=== PATIENT | male | born 1980 | race Asian ===

== ENCOUNTER 2019-03-18 13:52 | Inpatient (IN) | payer OTHER ==
[~2019-03-18] VITALS: Ht 170.2 cm; Wt 78.4 kg
--- NOTE | 2019-03-18 14:09 | ERD ---
ER Documentation Chief Complaint Chief Complaint right lower abdominal pain x 3 days HPI The patient is a 39-year-old male, presenting to the ER because of intermittent abdominal pain for the last 3 to 4 days, began at the umbilical area, now radiating down to right lower quadrant for the last 2 days, complains of nausea but no vomiting, complains of loose stool yesterday. He denies similar symptoms previously, denies fever, chills, neck pain, chest pain, dysuria. He does not smoke nor drink Medical history: None Past surgical history: Cervical lipoma ROS All systems reviewed and are negative except as per history of present illness. Allergies Allergies: Coded Allergies: No Known Allergy (Unverified , 03/18/19) Physical Exam Vitals Vital Signs Date Temp Pulse Resp B/P (MAP) Pulse Ox O2 O2 Flow FiO2 Time Delivery Rate 03/18/19 98.0 63 18 135/84 98 13:55 (101) Physical Exam Const: No acute distress. Head: Atraumatic. Eyes: Normal Conjunctiva. ENT: Normal External Ears, Nose and Mouth. Neck: Full range of motion. No meningismus. Resp: Clear to auscultation bilaterally. Cardio: Regular rate and rhythm. Abd: Soft, non distended, normal bowel sounds, mild right lower quadrant tenderness, no rigidity/rebound/CVA tenderness Skin: No petechiae or rashes. Back: No midline or flank tenderness. Ext: No cyanosis, or edema. Neur: Awake and alert. No focal deficit Psych: Normal Mood and Affect. Result Diagram: 03/19/19 0447 03/19/197 Results 24 hrs Laboratory Tests Test 03/18/19 14:21 03/18/19 14:22 03/18/19 14:37 Hemoglobin A1c 5.9 % White Blood Count 6.9 10^3/ul Red Blood Count 5.58 10^6/ul Hemoglobin 16.1 g/dl Hematocrit 49.4 % Mean Corpuscular Volume 88.5 fl Mean Corpuscular Hemoglobin 28.9 pg Mean Corpuscular 32.6 g/dl Hemoglobin Concent Red Cell Distribution Width 12.3 % Platelet Count 245 10^3/UL Mean Platelet Volume 10.6 fl Immature Granulocytes % 0.400 % Neutrophils % 57.0 % Lymphocytes % 31.4 % Monocytes % 6.7 % Eosinophils % 3.2 % Basophils % 1.3 % Nucleated Red Blood Cells % 0.0 /100WBC Immature Granulocytes # 0.030 10^3/ul Neutrophils # 3.9 10^3/ul Lymphocytes # 2.2 10^3/ul Monocytes # 0.5 10^3/ul Eosinophils # 0.2 10^3/ul Basophils # 0.1 10^3/ul Nucleated Red Blood Cells # 0.0 10^3/ul Sodium Level 141 mmol/L Potassium Level 3.7 mmol/L Chloride Level 105 mmol/L Carbon Dioxide Level 26 mmol/L Anion Gap 10 Blood Urea Nitrogen 12 mg/dl Creatinine 0.92 mg/dl Est Glomerular Filtrat Rate mL/min > 60 mL/min Glucose Level 131 mg/dl Calcium Level 9.3 mg/dl Total Bilirubin 0.7 mg/dl Direct Bilirubin 0.00 mg/dl Indirect Bilirubin 0.7 mg/dl Aspartate Amino Transf (AST/SGOT) 34 IU/L Alanine 43 IU/L Aminotransferase (ALT/SGPT) Alkaline Phosphatase 69 IU/L Total Protein 7.8 g/dl Albumin 4.5 g/dl Globulin 3.30 g/dl Albumin/Globulin Ratio 1.36 Lipase 128 U/L Bedside Urine pH (LAB) 6.0 Bedside Urine Protein (LAB) Negative Bedside Urine Glucose (UA) Negative Bedside Urine Ketones (LAB) Negative Bedside Urine Blood Negative Bedside Urine Nitrite (LAB) Negative Bedside Urine Leukocyte Esterase Negative (L Current Medications Medications Dose Sig/Nic Start Time Status Last (Trade) Ordered Route PRN Stop Time Admin Dose Reason Admin Ketorolac 30 mg ONCE STAT 03/18/19 DC 03/18/19 Tromethamine IV 14:15 14:26 (Toradol) 03/18/19 14:16 Piperacillin 100 ml @ ONCE ONCE 03/18/19 DC 03/18/19 Sod/ 200 mls/hr IVPB 16:30 16:24 Tazobactam 03/18/19 16:59 Sod Sodium 1,000 ml @ Q1H ONCE 03/18/19 DC 03/18/19 Chloride 1,000 mls/hr IV 16:30 16:24 03/18/19 17:29 Ondansetron 4 mg ONCE STAT 03/18/19 DC 03/18/19 HCl (Zofran IV 16:09 16:24 Inj) 03/18/19 16:11 Procedures/[facility] [address] [address] Radiology Main Line: [phone] DIAGNOSTIC IMAGING REPORT Patient: MAGEN JAIMES : 1980 Age: 39 Sex: M MR #: [id number] DOS: 03/18/19 1415 Ordering MD: DIOMEDES POLLARD MD Location: FTE Room/Bed: PROCEDURE: CT Abdomen and Pelvis without contrast. CLINICAL INDICATION: Abdominal pain TECHNIQUE: CT of the abdomen and pelvis without IV contrast. Coronal and sagittal reformatted images. DICOM images are available. One or more of the following dose reduction techniques were used: automated exposure control, adjustment of the mA and/or kV according to patient size, use of iterative reconstruction technique. CTDI 10.6 mGy, DLP 629 mGy-cm. COMPARISON: None. FINDINGS: Lower thorax: Normal Liver: Mild steatosis. Biliary: Normal gallbladder. No biliary dilatation. Pancreas: Normal Spleen: Normal Adrenal glands: Normal Genitourinary: No hydronephrosis or urinary calculi. Unremarkable urinary bladder. Vascular: No abdominal aortic aneurysm. Lymph nodes: No lymphadenopathy. Gastrointestinal: The appendix is distended (14 mm diameter), with mild adjacent inflammation, consistent with appendicitis. The appendix is retrocecal. No bowel obstruction. No diverticulosis, diverticulitis or colitis. Peritoneum: No free air, free fluid or abscess. Reproductive organs: Unremarkable. Musculoskeletal: Unremarkable. IMPRESSION: 1. The study is positive for retrocecal appendicitis, as above. 2. Mild hepatic steatosis. The above findings were discussed with Dr. Corrigan on 03/18/2019 3:52:26 PM. RPTAT: DD .Brian Zafar MD, MD Date Time Electronically viewed and signed by .Brian Zafar MD, MD on 03/18/2019 15: 53 .R/ CC: DIOMEDES POLLARD MD [id number] MEDICAL MAKING DECISION: The patient is a 39-year-old male, presenting with acute appendicitis, treated with Zosyn IV for acute appendicitis, 1 L normal saline, morphine 2 mg IV for pain and Zofran 4mg IV for nausea with good response. The differential diagnoses considered include but are not limited to cholelithiasis, cholecystitis, choledocholithiasis, cholangitis, pancreatitis, hepatitis, gastritis, peptic ulcer disease, gastric ulcer, appendicitis, cystitis, diverticulitis, partial small bowel obstruction. Consultation: I discussed the patient with the on-call surgeon Dr. Kapoor at 4:10 PM, who evaluated the patient in the ER Departure Diagnosis: Primary Impression: Appendicitis Condition: Stable Comments I discussed the findings with the patient. I notified the patient with Dr. Latham ate 4:40P via [employer] , who was made aware of the lab, the treatment, the patient condition. The patient is admitted to ms Disclaimer: Inadvertent spelling and grammatical errors are likely due to EHR/dictation software use and do not reflect on the overall quality of patient care. Also, please note that the electronic time recorded on this note does not necessarily reflect the actual time of the patient encounter. DIOMEDES POLLARD MD Mar 18, 2019 14:09
[2019-03-18] MEDS ORDERED: KETOROLAC 30 MG INJ IV STA (14:15)
[2019-03-18] MEDS ORDERED: ONDANSETRON 4 MG INJ IV STA (16:09)
[2019-03-18] MEDS ORDERED: PIPER-TAZO 3.375 GM IV (PMX) 100 ML IVPB ONE (16:30)
[2019-03-18] MEDS ORDERED: SOD CHLORIDE 0.9% 1,000 ML IV ONE (16:30)
--- NOTE | 2019-03-18 17:11 | HP ---
Date/Time of Note Date/Time of Note DATE: 03/18/19 TIME: 17:10 Assessment/Plan VTE Prophylaxis Pharmacological prophylaxis: NA/contraindicated Pharm contraindication: surgical contra Lines/Catheters IV [facility] Peripheral IV Assessment/Plan Hospital Course 39-year-old male with no significant past medical history, who came in with abdominal pain with CT evidence of acute appendicitis, [facility] and [facility]. 1. Abdominal pain. CT evidence of acute appendicitis. Keep the patient n.p.o. Will start the patient on antibiotics including coverage for anaerobes. Continue IV fluids. General surgery consult has been obtained. 2. Hepatic steatosis (incidental finding). Obtain fasting lipid panel. Plan: The patient will be admitted to inpatient medical surgical floor. The patient will be kept n.p.o. except for medications. The patient will be started on DVT prophylaxis . The patient will remain a full code. Activities will be as tolerated. The rest of the patient's management will be based on the clinical course, inputs from consultants, and the results of diagnostic studies. Based on the patient's clinical presentation, he most probably requires at least 1 midnight's stay for further management and evaluation of his clinical presentation. The patient was seen in collaboration with Dr. Latham. Result Diagram: 03/18/19 1422 03/18/19 1422 Results 24hrs Laboratory Tests Test 03/18/19 14:22 03/18/19 14:37 White Blood Count 6.9 Red Blood Count 5.58 Hemoglobin 16.1 Hematocrit 49.4 Mean Corpuscular Volume 88.5 Mean Corpuscular Hemoglobin 28.9 L Mean Corpuscular Hemoglobin Concent 32.6 Red Cell Distribution Width 12.3 Platelet Count 245 Mean Platelet Volume 10.6 H Immature Granulocytes % 0.400 Neutrophils % 57.0 Lymphocytes % 31.4 Monocytes % 6.7 Eosinophils % 3.2 Basophils % 1.3 Nucleated Red Blood Cells % 0.0 Immature Granulocytes # 0.030 Neutrophils # 3.9 Lymphocytes # 2.2 Monocytes # 0.5 Eosinophils # 0.2 Basophils # 0.1 Nucleated Red Blood Cells # 0.0 Sodium Level 141 Potassium Level 3.7 Chloride Level 105 Carbon Dioxide Level 26 Anion Gap 10 Blood Urea Nitrogen 12 Creatinine 0.92 Est Glomerular Filtrat Rate mL/min > 60 Glucose Level 131 Calcium Level 9.3 Total Bilirubin 0.7 Direct Bilirubin 0.00 Indirect Bilirubin 0.7 Aspartate Amino Transf (AST/SGOT) 34 Alanine Aminotransferase (ALT/SGPT) 43 Alkaline Phosphatase 69 Total Protein 7.8 Albumin 4.5 Globulin 3.30 H Albumin/Globulin Ratio 1.36 Lipase 128 Bedside Urine pH (LAB) 6.0 Bedside Urine Protein (LAB) Negative Bedside Urine Glucose (UA) Negative Bedside Urine Ketones (LAB) Negative Bedside Urine Blood Negative Bedside Urine Nitrite (LAB) Negative Bedside Urine Leukocyte Esterase (L Negative HPI/ROS Admit Date/Time Admit Date/Time Hx of Present Illness Reason for admission: Abdominal pain. CT evidence of acute appendicitis. Consultants 1. Damon Kapoor MD, General surgery. This is a 39-year-old male who denied any significant past medical history. The patient has been having abdominal pain for the past few days. He was also having underlying nausea. He had a few episodes of diarrhea lately. He also was feeling a lot of flatus. He denied any fevers or chills. He went to the primary care physician and he was referred to the emergency room. In the emergency room, the patient underwent a CT scan of the abdomen and pelvis that was showing evidence of retrocecal appendicitis. He was afebrile and had no leukocytosis. The patient was treated with IV analgesics, IV fluids, and Zosyn. General surgery consult was called by the ER physician. ROS Constitutional: poor po Eyes: no complaints ENT: no complaints Respiratory: no complaints Cardiovascular: no complaints Gastrointestinal: pain, decreased appetite, diarrhea, flatus, nausea Genitourinary: no complaints Musculoskeletal: no complaints Skin: no complaints Neurologic: no complaints Endocrine: no complaints Lymphatic: no complaints Psychological: no complaints Immunologic: no complaints PMH/Family/Social Past Medical History Medical History: no pertinent history Medications Current Medications Sodium Chloride 1,000 ml @ 1,000 mls/hr Q1H ONCE IV Last administered on 03/18/19at 16:24; Admin Dose 1,000 MLS/HR; Start 03/18/19 at 16:30; Stop 03/18/19 at 17:29 Coded Allergies: No Known Allergy (Unverified , 03/18/19) Past Surgical History Liposuction to the back of the neck. Social History Lives at home with family. 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 Alcohol Use: none Smoking Status: Never smoker Drug Use: none Exam/Review of Systems Vital Signs Vitals Vital Signs Date Temp Pulse Resp B/P (MAP) Pulse Ox O2 O2 Flow FiO2 Time Delivery Rate 03/18/19 98.0 63 18 135/84 98 13:55 (101) Exam Exam General: Adequately build 39 year-old male lying in bed in no apparent distress. HEENT: Normocephalic, atraumatic. Eyes: Anicteric sclerae, conjunctivae clear. ENT: Nasal septum midline, oral mucosa is dry. Neck supple, no JVD noticed. Respiratory: Bilaterally clear breath sounds. No use of accessory muscles of respiration. No adventitious breath sounds. Cardiovascular: S1, S2 heard. No murmurs or gallops. Abdomen: Slightly distended and nontender. Bowel sounds positive in all 4 quadrants. Genitourinary: Deferred. Extremities: No cyanosis, no clubbing, no edema. Peripheral pulses palpable. Neurologic: Cranial nerves II through XII grossly intact. The patient is awake, alert, and oriented. Skin: Normal skin turgor. No skin rashes. Additional Comments CT Abdomen and Pelvis IMPRESSION: 1. The study is positive for retrocecal appendicitis, as above. 2. Mild hepatic steatosis. JEWEL DIAS NP Mar 18, 2019 17:11
[2019-03-18] MEDS ORDERED: NACL 0.9% 3 ML SYG IV SCH (17:30)
[2019-03-18] MEDS ORDERED: HYDROCODONE/APAP (5/325) TAB PO PRN (17:30)
[2019-03-18] MEDS ORDERED: morphine 2 MG INJ IV PRN (17:30)
[2019-03-18] MEDS ORDERED: ONDANSETRON 4 MG INJ IV PRN (17:30)
[2019-03-18] MEDS ORDERED: ACETAMINOPHEN 325 MG TAB PO PRN (17:30)
[2019-03-18] MEDS ORDERED: PIPER-TAZO 3.375 GM IV (PMX) 100 ML IVPB SCH (18:00)
[2019-03-18] MEDS: SOD CHLORIDE 0.9% 1,000 ML IV SCH (19:31)
--- NOTE | 2019-03-18 20:24 | CONS ---
Assessment/Plan Assessment/Plan Hospital Course (Demo Recall) CT scan was performed that showed findings consistent with early appendicitis. White blood count was found to be normal. Assessment/Plan (Daily) 39-year-old otherwise healthy male with acute appendicitis probably very early. No evidence of severe inflammation. The patient recently had a large meal and I do not think it will be safe to proceed with surgery at this moment. Patient has very mild appendicitis, very mild signs. The decision is made to wait till tomorrow if the patient persists with pain we will proceed with appendectomy. I discussed with the patient and patient agrees. Consultation Date/Type/Reason Admit Date/Time Date of Consultation: Mar 18, 2019 Type of Consult Surgical Reason for Consultation Abdominal pain Date/Time of Note DATE: 03/18/19 TIME: 20:12 Hx of Present Illness 39-year-old otherwise healthy male started to experience diffuse abdominal pain earlier this morning. His pain was associated with nausea and vomiting. However his appetite was preserved. Subsequently pain focused in the right lower quadrant. Patient went to see his primary care physician who referred him to emergency room. Of note the patient had a large meal around 1:00 PM today. Constitutional: no complaints, improved Eyes: no complaints ENT: no complaints Respiratory: no complaints Cardiovascular: no complaints Gastrointestinal: pain, nausea, vomiting Genitourinary: no complaints Musculoskeletal: no complaints Skin: no complaints Neurologic: no complaints Endocrine: no complaints Lymphatic: no complaints Psychological: no complaints, nl mood/affect Immunologic: no complaints Past Medical History Medical History: no pertinent history Medications Current Medications Sodium Chloride 1,000 ml @ 100 mls/hr Q10H IV Last administered on 03/18/19at 19:31; Admin Dose 100 MLS/HR; Start 03/18/19 at 17:11 IV Flush (NS 3 ml) 3 ml PER PROTOCOL IV ; Start 03/18/19 at 17:30 Ondansetron HCl (Zofran Inj) 4 mg Q6H PRN IV NAUSEA/VOMITING; Start 03/18/19 at 17:30 Acetaminophen (Tylenol Tab) 650 mg Q6H PRN PO .PAIN 1-3 OR TEMP; Start 03/18/19 at 17:30 Acetaminophen/ Hydrocodone Bitart ([place] (5/325)) 1 tab Q6H PRN PO .MOD PAIN 4- 6 Last administered on 03/18/19at 19:40; Admin Dose 1 TAB; Start 03/18/19 at 17:30 Morphine Sulfate (morphine) 2 mg Q4H PRN IV .SEVERE PAIN 7-10; Start 03/18/19 at 17:30 Piperacillin Sod/ Tazobactam Sod 100 ml @ 200 mls/hr Q6 IVPB ; Start 03/19/19 at 00:00 Allergies: Coded Allergies: No Known Allergy (Unverified , 03/18/19) Past Surgical History Past Surgical Hx: no surgical history Family History Significant Family History: no pertinent family hx Social History Alcohol Use: none Smoking Status: Never smoker Drug Use: none Exam/Review of Systems Exam Vitals Vital Signs Date Temp Pulse Resp B/P (MAP) Pulse Ox O2 O2 Flow FiO2 Time Delivery Rate 03/18/19 99.1 72 18 140/87 98 Room Air 20:05 (104) Constitutional: alert, oriented, well developed Psych: no complaints, nl mood/affect Head: normocephalic, atraumatic Eyes: nl conjunctiva, EOMI, nl lids, nl sclera, PERRL ENMT: nl external ears & nose, nl lips & teeth, nl nasal mucosa & septum Neck: supple, non-tender Respiratory: clear to auscultation, normal air movement Cardiovascular: regular rate and rhythm, nl pulses Gastrointestinal: soft, nl liver, spleen, other (There is a very mild tenderness in the right lower quadrant on deep palpation, no rebound, no positive Rovsing or psoas signs.) Musculoskeletal: nl extremities to inspection, nl gait and stance Extremities: normal pulses Neurological: RN CHRONIC II-XII intact, nl mental status, nl speech, nl strength Skin: nl turgor; No rash or lesions Lymph: nl lymph nodes Results Result Diagram: 03/18/19 1422 03/18/19 1422 Results 24hrs Laboratory Tests Test 03/18/19 14:21 03/18/19 14:22 03/18/19 14:37 Hemoglobin A1c 5.9 White Blood Count 6.9 Red Blood Count 5.58 Hemoglobin 16.1 Hematocrit 49.4 Mean Corpuscular Volume 88.5 Mean Corpuscular Hemoglobin 28.9 L Mean Corpuscular Hemoglobin Concent 32.6 Red Cell Distribution Width 12.3 Platelet Count 245 Mean Platelet Volume 10.6 H Immature Granulocytes % 0.400 Neutrophils % 57.0 Lymphocytes % 31.4 Monocytes % 6.7 Eosinophils % 3.2 Basophils % 1.3 Nucleated Red Blood Cells % 0.0 Immature Granulocytes # 0.030 Neutrophils # 3.9 Lymphocytes # 2.2 Monocytes # 0.5 Eosinophils # 0.2 Basophils # 0.1 Nucleated Red Blood Cells # 0.0 Sodium Level 141 Potassium Level 3.7 Chloride Level 105 Carbon Dioxide Level 26 Anion Gap 10 Blood Urea Nitrogen 12 Creatinine 0.92 Est Glomerular Filtrat Rate mL/min > 60 Glucose Level 131 Calcium Level 9.3 Total Bilirubin 0.7 Direct Bilirubin 0.00 Indirect Bilirubin 0.7 Aspartate Amino Transf (AST/SGOT) 34 Alanine Aminotransferase (ALT/SGPT) 43 Alkaline Phosphatase 69 Total Protein 7.8 Albumin 4.5 Globulin 3.30 H Albumin/Globulin Ratio 1.36 Lipase 128 Bedside Urine pH (LAB) 6.0 Bedside Urine Protein (LAB) Negative Bedside Urine Glucose (UA) Negative Bedside Urine Ketones (LAB) Negative Bedside Urine Blood Negative Bedside Urine Nitrite (LAB) Negative Bedside Urine Leukocyte Esterase (L Negative Medications Medication Current Medications Sodium Chloride 1,000 ml @ 100 mls/hr Q10H IV Last administered on 03/18/19at 19:31; Admin Dose 100 MLS/HR; Start 03/18/19 at 17:11 IV Flush (NS 3 ml) 3 ml PER PROTOCOL IV ; Start 03/18/19 at 17:30 Ondansetron HCl (Zofran Inj) 4 mg Q6H PRN IV NAUSEA/VOMITING; Start 03/18/19 at 17:30 Acetaminophen (Tylenol Tab) 650 mg Q6H PRN PO .PAIN 1-3 OR TEMP; Start 03/18/19 at 17:30 Acetaminophen/ Hydrocodone Bitart ([place] (5/325)) 1 tab Q6H PRN PO .MOD PAIN 4- 6 Last administered on 03/18/19at 19:40; Admin Dose 1 TAB; Start 03/18/19 at 17:30 Morphine Sulfate (morphine) 2 mg Q4H PRN IV .SEVERE PAIN 7-10; Start 03/18/19 at 17:30 Piperacillin Sod/ Tazobactam Sod 100 ml @ 200 mls/hr Q6 IVPB ; Start 03/19/19 at 00:00 WIL OJEDA MD Mar 18, 2019 20:24
[2019-03-18 21:08] VITALS: BP 119/86; PULSE 71; RESP 20
[2019-03-18 21:17] VITALS: Ht 170.2 cm; Wt 78.4 kg
[2019-03-18] MEDS ORDERED: KETOROLAC 30 MG INJ ONE (22:31)
[2019-03-18] MEDS: KETOROLAC 30 MG INJ IV PRN (22:38)
[2019-03-19] VITALS (16 sets, daily range): BP systolic 92–126; BP diastolic 53–83; PULSE 62–82; RESP 13–22
[2019-03-19] MEDS: PIPER-TAZO 3.375 GM IV (PMX) 100 ML IVPB SCH ×6 (01:08→23:46)
[2019-03-19] MEDS: SOD CHLORIDE 0.9% 1,000 ML IV SCH ×2 (03:11→09:14)
[2019-03-19] MEDS: KETOROLAC 30 MG INJ IV PRN ×4 (05:15→21:01)
[2019-03-19] MEDS ORDERED: BUPIVACAINE 0.5%/EPI (SDV) 30 ML INJ ONE (11:24)
[2019-03-19] MEDS ORDERED: SEVOFLURANE 15 MIN ONE (11:30)
--- NOTE | 2019-03-19 11:45 | PREAC ---
Date/Time of Note Date/Time of Note DATE: 03/19/19 TIME: 11:44 Anesthesia Eval and Record Evaluation Time Pre-Procedure Interview DATE: 03/19/19 TIME: 11:44 Age 39 Sex male NPO: 8 hrs Preoperative diagnosis Acute Appendicitis Planned procedure Laparoscopic Appendectomy Past Medical History Past Medical History: None Surgery & Anesthesia Issues No known issue Meds Anticoagulation: No Beta Radha within 24 hr: No Reason Beta Radha not given: Pt. not on B-Radha Current Medications Sodium Chloride 1,000 ml @ 100 mls/hr Q10H IV Last administered on 03/19/19at 09:14; Admin Dose 100 MLS/HR; Start 03/18/19 at 17:11 IV Flush (NS 3 ml) 3 ml PER PROTOCOL IV ; Start 03/18/19 at 17:30 Ondansetron HCl (Zofran Inj) 4 mg Q6H PRN IV NAUSEA/VOMITING; Start 03/18/19 at 17:30 Acetaminophen (Tylenol Tab) 650 mg Q6H PRN PO .PAIN 1-3 OR TEMP; Start 03/18/19 at 17:30 Acetaminophen/ Hydrocodone Bitart ([place] (5/325)) 1 tab Q6H PRN PO .MOD PAIN 4- 6 Last administered on 03/18/19at 19:40; Admin Dose 1 TAB; Start 03/18/19 at 17:30 Morphine Sulfate (morphine) 2 mg Q4H PRN IV .SEVERE PAIN 7-10; Start 03/18/19 at 17:30 Piperacillin Sod/ Tazobactam Sod 100 ml @ 200 mls/hr Q6 IVPB Last administered on 03/19/19at 05:18; Admin Dose 200 MLS/HR; Start 03/19/19 at 00:00 Ketorolac Tromethamine (Toradol) 30 mg Q6H PRN IV PAIN LEVEL 1-3 Last administered on 03/19/19at 11:12; Admin Dose 30 MG; Start 03/18/19 at 22:30; Stop 03/21/19 at 22:29 Meds reviewed: Yes Allergies Coded Allergies: No Known Allergy (Unverified , 03/18/19) Allergies Reviewed: Yes Labs/Studies Labs Reviewed: Reviewed by anesthesiologist Result Diagram: 03/19/19 0447 03/19/19 0447 Laboratory Tests 03/19/19 04:47 test: N/A Studies: ECG (n/a), CXR (n/a) Pre-procedure Exam Last vitals Vital Signs Date Temp Pulse Resp B/P (MAP) Pulse Ox O2 O2 Flow FiO2 Time Delivery Rate 03/19/19 98.0 69 16 119/76 97 08:00 (90) 03/18/19 Room Air 20:05 Airway: Adequate mouth opening, Adequate thyromental dist Mallampati: Mallampati II Teeth: Normal Lung: Normal Heart: Normal ASA Physical Status ASA physical status: 1 Emergency: E Planned Anesthetic General/MAC: ETT Nerve block: TAP (bilateral) Planned Pain Management Single shot nerve block, Parenteral pain med Pre-operative Attestations Prior to commencing anesthesia and surgery, the patient was re-evaluated, there was verification of: *The patient's identity *The results of appropriate recent lab work and preoperative vital signs *The above evaluation not changing prior to induction *Anesthetic plan, risk benefits, alternative and complications discussed with patient/family; questions answered; patient/family understands, accepts and wishes to proceed. GLORIA CARRASCO MD Mar 19, 2019 11:45
[2019-03-19] MEDS ORDERED: MIDAZOLAM 1 MG/ML 2 ML INJ ONE (11:47)
[2019-03-19] MEDS ORDERED: PROPOFOL 20 ML ONE (11:47)
[2019-03-19] MEDS ORDERED: ROCURONIUM 50 MG INJ ONE (11:47)
[2019-03-19] MEDS ORDERED: ROPIVACAINE 0.5 % 30 ML VIAL ONE (11:48)
[2019-03-19] MEDS ORDERED: FENTAnyl 50 MCG/ML VIAL ONE (11:48)
[2019-03-19] MEDS ORDERED: DEXAMETHASONE 4 MG/ML 5 ML INJ ONE (12:50)
[2019-03-19] MEDS ORDERED: KETOROLAC 30 MG INJ ONE (12:50)
[2019-03-19] MEDS ORDERED: METOCLOPRAMIDE 10 MG INJ ONE (12:50)
[2019-03-19] MEDS ORDERED: SUGAMMADEX SODIUM 200 MG/2 ML VIAL IV ONE (12:50)
[2019-03-19] MEDS ORDERED: ONDANSETRON 4 MG INJ ONE (12:50)
[2019-03-19] MEDS ORDERED: HYDROmorphONE 0.5 MG/0.5 ML SYG IV PRN (13:00)
[2019-03-19] MEDS ORDERED: METOCLOPRAMIDE 10 MG INJ IV PRN ×2 (13:00→14:00)
[2019-03-19] MEDS ORDERED: ONDANSETRON 4 MG INJ IV PRN ×2 (13:00→14:00)
[2019-03-19] MEDS ORDERED: IBUPROFEN 600 MG TAB PO PRN (13:00)
[2019-03-19] MEDS ORDERED: ACETAMINOPHEN 325 MG TAB PO PRN (13:00)
--- NOTE | 2019-03-19 13:03 | OPR ---
Date/Time of Note Date/Time of Note DATE: 03/19/19 TIME: 13:01 Operative Report Procedure Date: Mar 19, 2019 Preoperative Diagnosis Acute appendicitis Postoperative Diagnosis Acute phlegmonous appendicitis Operation/Procedure Performed Laparoscopic appendectomy Surgeon see signature line Sewing Inspector None Anesthesia Type: general Anesthesiologist: GLORIA CARRASCO MD Estimated Blood Loss: minimal Transfusion none Specimen Appendix Grafts/Implants none Complications none Pt Condition Post Procedure: stable Disposition: PACU Indications 39-year-old male with acute appendicitis confirmed by CT scan.We discussed risks and benefits were discussed possible side effects, possible complications including but not limited to bleeding, infection, injury to other organs, anesthesia complication, patient understood risk and benefits and wished to proceed. Procedure Description The risks, benefits and alternatives of the procedure were discussed with the patient and informed consent was obtained. We discussed with the patient and the family possibility of the bleeding, infection, injury to other organs. Patient was brought to operating room positioned supine. General endotracheal anesthesia was induced. Abdomen was prepped and draped in the usual sterile fashion. Timeout was performed. Antibiotics were given previously. Through the small infraumbilical incision the Veress needle was placed and the abdomen was insufflated with CO2 up to 15 mmHg. Through the same incision 5 mm trocar was placed under direct control of the laparoscope. 2 additional trocars were placed in the midline, 12 mm trocar just above the pubis and 5 mm trocar midline between the pubis and the umbilicus. The appendix was visualized and was found to be acutely inflamed with phlegmon. The window was created using blunt dissection at the mesentery of the appendix next to the cecum and appendix was divided using endoscopic stapler with white load. The additional load of the same stapler was used to divide the mesentery. The hemostasis was confirmed. Local bleeding was controlled with the cautery. The abdomen was irrigated all the fluid was carefully sucked out. There is appendix was removed through the 12 mm trocar using Endocatch. The abdomen was desufflated all trocars were removed. The 12 mm trocar was closed in 2 layers using 0 Vicryl to the fascia and 4-0 Monocryl for the skin. The 5 mm trocars were closed just using 4-0 Monocryl to the skin. Patient tolerated procedure well was extubated transferred to recovery room. WIL OJEDA MD Mar 19, 2019 13:02
[2019-03-19] MEDS ORDERED: NALOXONE (0.4 MG/ML) INJ ONE (13:14)
[2019-03-19] MEDS ORDERED: HYDROmorphONE 1 MG/5 ML IV SYRINGE IV ONE (13:49)
--- NOTE | 2019-03-19 13:54 | PAC ---
Date/Time of Note Date/Time of Note DATE: 03/19/19 TIME: 13:54 Post-Anesthesia Notes Post-Anesthesia Note Last documented vital signs Vital Signs Date Temp Pulse Resp B/P (MAP) Pulse Ox O2 O2 Flow FiO2 Time Delivery Rate 03/19/19 62 16 116/77 100 Room Air 13:41 (90) 03/19/19 98.0 13:11 Activity: WNL Respiratory function: WNL Cardiovascular function: WNL Mental status: Baseline Pain reasonably controlled: Yes Hydration appropriate: Yes Nausea/Vomiting absent: Yes GLORIA CARRASCO MD Mar 19, 2019 13:54
[2019-03-19] MEDS ORDERED: LABETALOL HCL 20MG INJ IV PRN (14:00)
[2019-03-19] MEDS ORDERED: EPHEDrine 25 MG/5 ML SYG IV PRN (14:00)
[2019-03-19] MEDS ORDERED: HYDROmorphONE 1 MG/5 ML IV SYRINGE IV PRN ×2 (14:00)
[2019-03-19] MEDS ORDERED: FENTAnyl 50 MCG/ML VIAL IV PRN ×2 (14:00)
[2019-03-19] MEDS: D5W-0.45 NACL + KCL 20 MEQ 1,000 ML IV SCH (14:39)
--- NOTE | 2019-03-19 15:11 | PN ---
Date/Time of Note Date/Time of Note DATE: 03/19/19 TIME: 15:08 Assessment/Plan VTE Prophylaxis Risk score (from Nsg)>0 risk: 1 SCD applied (from Ns): No SCD contraindicated: low risk/ambulating Pharmacological prophylaxis: NA/contraindicated Pharm contraindication: low risk/ambulating Lines/Catheters IV Catheter Type (from Nrs): Peripheral IV Urinary Cath still in place: No Assessment/Plan Hospital Course SUBJECTIVE: Complains of incisional pain. OBJECTIVE: Physical Exam General: Adequately build 39 year-old male lying in bed in no apparent distress. HEENT: Normocephalic, atraumatic. Eyes: Anicteric sclerae, conjunctivae clear. ENT: Nasal septum midline, oral mucosa is dry. Neck supple, no JVD noticed. Respiratory: Bilaterally clear breath sounds. No use of accessory muscles of respiration. No adventitious breath sounds. Cardiovascular: S1, S2 heard. No murmurs or gallops. Abdomen: Non-distended. Dressings over laparoscopic incision sites. Genitourinary: Deferred. Extremities: No cyanosis, no clubbing, no edema. Peripheral pulses palpable. Neurologic: Cranial nerves II through XII grossly intact. The patient is awake, alert, and oriented. Skin: Normal skin turgor. No skin rashes. Labs & Vitals per chart ASSESSMENT & PLAN 39-year-old male with no significant past medical history, who came in with abdominal pain with CT evidence of acute appendicitis, who will be admitted to inpatient setting for further treatment and evaluation. 1. Acute phlegmonous appendicitis. Status post laparoscopic appendectomy on 03/19/2019. Encourage frequent ambulation and frequent use of incentive spirometry. 2. Hepatic steatosis (incidental finding). Satisfactory fasting lipid panel. 3. Prediabetes. Hemoglobin A1c 5.9. Monitor glycemic trends. 4. Fluids, electrolytes, and nutrition. Advance diet as tolerated. 5. DVT prophylaxis. Bilateral SCDs. 6. Plan. Continue pain control. Advancement of diet as tolerated. Encourage ambulation and use of incentive spirometry. The patient was seen in collaboration with Dr. Latham. Result Diagram: 03/19/[id number] Results 24hrs Laboratory Tests Test 03/19/19 04:47 White Blood Count 7.1 Red Blood Count 4.92 Hemoglobin 14.3 Hematocrit 44.9 Mean Corpuscular Volume 91.3 Mean Corpuscular Hemoglobin 29.1 Mean Corpuscular Hemoglobin Concent 31.8 L Red Cell Distribution Width 12.6 Platelet Count 210 Mean Platelet Volume 10.9 H Immature Granulocytes % 0.300 Neutrophils % 57.9 Lymphocytes % 26.3 Monocytes % 11.2 H Eosinophils % 3.2 Basophils % 1.1 Nucleated Red Blood Cells % 0.0 Immature Granulocytes # 0.020 Neutrophils # 4.1 Lymphocytes # 1.9 Monocytes # 0.8 Eosinophils # 0.2 Basophils # 0.1 Nucleated Red Blood Cells # 0.0 Sodium Level 143 Potassium Level 4.1 Chloride Level 109 Carbon Dioxide Level 28 Anion Gap 6 Blood Urea Nitrogen 14 Creatinine 1.19 Est Glomerular Filtrat Rate mL/min > 60 Glucose Level 92 Calcium Level 8.6 Phosphorus Level 5.0 H Magnesium Level 2.0 Total Bilirubin 0.7 Direct Bilirubin 0.00 Indirect Bilirubin 0.7 Aspartate Amino Transf (AST/SGOT) 28 Alanine Aminotransferase (ALT/SGPT) 44 Alkaline Phosphatase 60 Total Protein 6.2 # Albumin 3.5 # Globulin 2.70 Albumin/Globulin Ratio 1.29 Triglycerides Level 108 Cholesterol Level 169 LDL Cholesterol, Calculated 119 HDL Cholesterol 28 Cholesterol/HDL Ratio 6.0 Exam/Review of Systems Exam Vitals Vital Signs Date Temp Pulse Resp B/P (MAP) Pulse Ox O2 O2 Flow FiO2 Time Delivery Rate 03/19/19 97.7 76 18 113/74 96 14:32 (87) 03/19/19 Room Air 14:06 Intake and Output 03/18/19 03/18/19 03/19/19 1515:00 23:00 07:00 IntakeIntake Total 1000 ml 800 ml BalanceBalance 1000 ml 800 ml Results Results 24hrs Laboratory Tests Test 03/19/19 04:47 White Blood Count 7.1 Red Blood Count 4.92 Hemoglobin 14.3 Hematocrit 44.9 Mean Corpuscular Volume 91.3 Mean Corpuscular Hemoglobin 29.1 Mean Corpuscular Hemoglobin Concent 31.8 L Red Cell Distribution Width 12.6 Platelet Count 210 Mean Platelet Volume 10.9 H Immature Granulocytes % 0.300 Neutrophils % 57.9 Lymphocytes % 26.3 Monocytes % 11.2 H Eosinophils % 3.2 Basophils % 1.1 Nucleated Red Blood Cells % 0.0 Immature Granulocytes # 0.020 Neutrophils # 4.1 Lymphocytes # 1.9 Monocytes # 0.8 Eosinophils # 0.2 Basophils # 0.1 Nucleated Red Blood Cells # 0.0 Sodium Level 143 Potassium Level 4.1 Chloride Level 109 Carbon Dioxide Level 28 Anion Gap 6 Blood Urea Nitrogen 14 Creatinine 1.19 Est Glomerular Filtrat Rate mL/min > 60 Glucose Level 92 Calcium Level 8.6 Phosphorus Level 5.0 H Magnesium Level 2.0 Total Bilirubin 0.7 Direct Bilirubin 0.00 Indirect Bilirubin 0.7 Aspartate Amino Transf (AST/SGOT) 28 Alanine Aminotransferase (ALT/SGPT) 44 Alkaline Phosphatase 60 Total Protein 6.2 # Albumin 3.5 # Globulin 2.70 Albumin/Globulin Ratio 1.29 Triglycerides Level 108 Cholesterol Level 169 LDL Cholesterol, Calculated 119 HDL Cholesterol 28 Cholesterol/HDL Ratio 6.0 Medications Medication Current Medications IV Flush (NS 3 ml) 3 ml PER PROTOCOL IV ; Start 03/18/19 at 17:30 Ondansetron HCl (Zofran Inj) 4 mg Q6H PRN IV NAUSEA/VOMITING; Start 03/18/19 at 17:30 Piperacillin Sod/ Tazobactam Sod 100 ml @ 200 mls/hr Q6 IVPB Last administered on 03/19/19at 05:18; Admin Dose 200 MLS/HR; Start 03/19/19 at 00:00 Metoclopramide HCl (Reglan) 10 mg Q6H PRN IV NAUSEA AND/OR VOMITING; Start 03/19/19 at 13:00 Ondansetron HCl (Zofran Inj) 4 mg Q6H PRN IV NAUSEA AND/OR VOMITING; Start 03/19/19 at 13:00 Acetaminophen (Tylenol Tab) 650 mg Q6H PRN PO PAIN LEVEL 1-3 OR FEVER; Start 03/19/19 at 13:00 Ibuprofen (Motrin) 600 mg Q6H PRN PO PAIN LEVEL 1-3; Start 03/19/19 at 13:00 Ketorolac Tromethamine (Toradol) 30 mg Q6H PRN IV PAIN; Start 03/19/19 at 13:00; Stop 03/22/19 at 12:59 Hydromorphone HCl (Dilaudid) 0.5 mg Q4H PRN IV PAIN LEVEL 8-10; Start 03/19/19 at 13:00 Acetaminophen/ Hydrocodone Bitart ([place] (5/325)) 1 tab Q6H PRN PO PAIN LEVEL 4-7; Start 03/19/19 at 13:00 Potassium Chloride/Dextrose/ Sod Cl 1,000 ml @ 100 mls/hr Q10H IV Last administered on 03/19/19at 14:39; Admin Dose 100 MLS/HR; Start 03/19/19 at 12:59 Hydromorphone HCl (Dilaudid) 0.2 mg PACU PRN IV MILD PAIN 1-3 Last administered on 03/19/19at 14:05; Admin Dose 0.2 MG; Start 03/19/19 at 14:00; Stop 03/19/19 at 20:00 Hydromorphone HCl (Dilaudid) 0.4 mg PACU PRN IV MOD PAIN 4-6 Last administered on 03/19/19at 14:03; Admin Dose 0.4 MG; Start 03/19/19 at 14:00; Stop 03/19/19 at 20:00 Fentanyl (Sublimaze) 25 mcg PACU ORDER PRN IV MILD PAIN 1-3; Start 03/19/19 at 14:00; Stop 03/19/19 at 20:00 Fentanyl (Sublimaze) 50 mcg PACU ORDER PRN IV MOD PAIN 4-6; Start 03/19/19 at 14:00; Stop 03/19/19 at 20:00 Ondansetron HCl (Zofran Inj) 4 mg PACU ORDER PRN IV NAUSEA/VOMITING; Start 03/19/19 at 14:00; Stop 03/19/19 at 20:00 Metoclopramide HCl (Reglan) 10 mg PACU ORDER PRN IV NAUSEA/VOMITING; Start 03/19/19 at 14:00; Stop 03/19/19 at 20:00 Labetalol HCl (Labetalol) 5 mg PACU ORDER PRN IV HIGH BLOOD PRESSURE; Start 03/19/19 at 14:00; Stop 03/19/19 at 20:00 Ephedrine Sulfate 5 mg PACU ORDER PRN IV BLOOD PRESSURE SUPPORT; Start 03/19/19 at 14:00; Stop 03/19/19 at 20:00 JEWEL DIAS NP Mar 19, 2019 15:11
[2019-03-19] MEDS: HYDROCODONE/APAP (5/325) TAB PO PRN (18:31)
[2019-03-20] MEDS: D5W-0.45 NACL + KCL 20 MEQ 1,000 ML IV SCH (01:01)
[2019-03-20 02:00] VITALS: BP 100/57; PULSE 76; RESP 18
[2019-03-20] MEDS: HYDROCODONE/APAP (5/325) TAB PO PRN (05:32)
[2019-03-20] MEDS: PIPER-TAZO 3.375 GM IV (PMX) 100 ML IVPB SCH ×2 (05:35→11:32)
[2019-03-20 08:11] VITALS: BP 109/57; PULSE 77; RESP 16
[2019-03-20] MEDS: KETOROLAC 30 MG INJ IV PRN (08:55)
[2019-03-20 14:00] VITALS: BP 105/56; PULSE 80; RESP 16
--- NOTE | 2019-03-20 14:53 | PDOCDIS ---
Discharge Instructions CONDITION [id number] Patient Condition: [id number] Stable HOME CARE INSTRUCTIONS: [id number] Diet Instructions: [id number] Regular FOLLOW UP/APPOINTMENTS Follow-up Plan Damon Kapoor MD Specialty: General Surgery Office Address [address] [place] [address]. [address] [place] [address] Office OTHER ORDERS: Other Orders: 1. Regular diet as tolerated. 2. Keep incisions clean and dry. May shower. Avoid tub baths and swimming for 2 weeks. Use mild soap and pat dry the incisions. 3. Take medications as needed for pain. 4. Call the surgeon or go to the nearest ER if you have severe abdominal pain despite pain medications. 5. Call the surgeon or go to the nearest ER if you notice any bleeding or secretions coming out of the incision sites. Also call the surgeon if you notice any blood in stool, if you have persistent fevers, or any other unusual signs or symptoms. 6. Follow-up with the surgeon Dr. Kapoor in 7 days for incision check. 7. Avoid heavy lifting [more than 10-15 pounds] for 4 weeks. JEWEL DIAS NP Mar 20, 2019 14:53
[2019-03-20] MEDS ORDERED: Work Note ×2 (15:05→15:18)
[2019-03-20] MEDS ORDERED: DOCU-144 PO (15:06)
[2019-03-20] MEDS ORDERED: HYDR-4011 PO (15:06)
--- NOTE | 2019-03-20 15:53 | DS ---
Date/Time of Note Date/Time of Note DATE: 03/20/19 TIME: 15:52 Discharge Summary Admission/Discharge Info Admit Date/Time Mar 18, 2019 at 16:40 Discharge Date/Time Discharge Diagnosis 1. Acute phlegmonous appendicitis. Status post laparoscopic appendectomy on 03/19/2019. 2. Hepatic steatosis (incidental finding). 3. Prediabetes. Hemoglobin A1c 5.9. Patient Condition: Stable Consults 1. Damon Kapoor MD, General Surgery. Procedures Operative Report Procedure Date: Mar 19, 2019 Preoperative Diagnosis Acute appendicitis Postoperative Diagnosis Acute phlegmonous appendicitis Operation/Procedure Performed Laparoscopic appendectomy Hx of Present Illness Reason for admission: Abdominal pain. CT evidence of acute appendicitis. Consultants 1. Damon Kapoor MD, General surgery. This is a 39-year-old male who denied any significant past medical history. The patient has been having abdominal pain for the past few days. He was also having underlying nausea. He had a few episodes of diarrhea lately. He also was feeling a lot of flatus. He denied any fevers or chills. He went to the primary care physician and he was referred to the emergency room. In the emergency room, the patient underwent a CT scan of the abdomen and pelvis that was showing evidence of retrocecal appendicitis. He was afebrile and had no leukocytosis. The patient was treated with IV analgesics, IV fluids, and Zosyn. General surgery consult was called by the ER physician. Hospital Course The patient was admitted to inpatient setting. He was started on empiric antimicrobials. He was kept n.p.o. He was provided with adequate pain control. A general surgery consult was obtained. The patient was taken to the OR on 03/19/2019 and the patient underwent a laparoscopic appendectomy. Intraoperative findings suggested phlegmonous appendicitis. Status post procedure, the patient was started on a clear liquid diet and the diet was advanced as tolerated to a regular consistency diet without any significant gastrointestinal symptoms. The patient started having bowel function and he had a bowel movement. The patient is stable to be discharged home, to be followed up with outpatient surgery. The patient is otherwise a relatively healthy male with no significant past medical history. The patient was recently noticed to have hepatic steatosis. However, the patient's fasting lipid panel was satisfactory. The patient was also noticed to be prediabetic with a hemoglobin A1c of 5.9. The patient's random blood glucose levels were within normal limits. The patient was advised on a low carbohydrate diet. 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 Discharge Instructions 1. Regular diet as tolerated. 2. Keep incisions clean and dry. May shower. Avoid tub baths and swimming for 2 weeks. Use mild soap and pat dry the incisions. 3. Take medications as needed for pain. 4. Call the surgeon or go to the nearest ER if you have severe abdominal pain despite pain medications. 5. Call the surgeon or go to the nearest ER if you notice any bleeding or se cretions coming out of the incision sites. Also call the surgeon if you notice any blood in stool, if you have persistent fevers, or any other unusual signs or symptoms. 6. Follow-up with the surgeon Dr. Kapoor in 7 days for incision check. 7. Avoid heavy lifting [more than 10-15 pounds] for 4 weeks. The patient verbalized understanding of his discharge instructions. At this time I would like to thank Dr. Kapoor for seeing the patient, doing the necessary procedures, and providing clinical recommendations. The patient was seen in collaboration with Dr. Latham. [facility] Active Scripts [Work Note] No Conflict Check This is to certify that this patient was admitted to [facility] from 03/18/2019 to 03/20/2019. He may return back to work on 03/28/2019 with restriction of no heavy lifting more than 15 pounds until 04/16/2019. Prov:JEWEL DIAS NP 03/20/19 Docusate Sodium* (Colace*) 100 Mg Capsule, 100 MG PO BID, #20 CAP Prov:JEWEL DIAS NP 03/20/19 Hydrocodone/Acetaminophen ([place] 5-325 Tablet) 1 Each Tablet, 1 EACH PO Q6H for Pain, #6 TAB Prov:JEWEL DIAS NP 03/20/19 Follow-up Plan Damon Kapoor MD Specialty: General Surgery Office Address [address] [place] [address]. [address] [place] [address] Office Primary Care Provider Care Physician No Primary Time spent on discharge: > 30 minutes Pending Labs Laboratory Tests Test 03/20/19 05:31 White Blood Count 10.5 10^3/ul (4.8-10.8) Red Blood Count 5.01 10^6/ul (4.70-6.10) Hemoglobin 14.6 g/dl (14.0-18.0) Hematocrit 44.6 % (42.0-52.0) Mean Corpuscular Volume 89.0 fl (82.0-101.0) Mean Corpuscular Hemoglobin 29.1 pg (29.0-33.0) Mean Corpuscular Hemoglobin Concent 32.7 g/dl (32.0-37.0) Red Cell Distribution Width 12.3 % (11.5-14.5) Platelet Count 256 10^3/UL (140-415) Mean Platelet Volume 10.8 fl (7.4-10.4) Immature Granulocytes % 0.500 % (0.001-0.429) Neutrophils % 79.1 % (39.0-77.0) Lymphocytes % 13.7 % (15.0-51.0) Monocytes % 6.5 % (0.0-11.0) Eosinophils % 0.0 % (0.0-7.0) Basophils % 0.2 % (0.0-2.0) Nucleated Red Blood Cells % 0.0 /100WBC (0.0-0.0) Immature Granulocytes # 0.050 10^3/ul (0.0-0.031) Neutrophils # 8.3 10^3/ul (1.6-7.5) Lymphocytes # 1.4 10^3/ul (0.8-2.9) Monocytes # 0.7 10^3/ul (0.3-0.9) Eosinophils # 0.0 10^3/ul (0.0-0.5) Basophils # 0.0 10^3/ul (0.0-0.1) Nucleated Red Blood Cells # 0.0 10^3/ul (0.0-0.0) Sodium Level 142 mmol/L (135-144) Potassium Level 4.0 mmol/L (3.5-5.1) Chloride Level 108 mmol/L (97-110) Carbon Dioxide Level 24 mmol/L (21-31) Anion Gap 10 (5-13) Blood Urea Nitrogen 12 mg/dl (7-20) Creatinine 1.08 mg/dl (0.61-1.24) Est Glomerular Filtrat Rate mL/min > 60 mL/min (>60) Glucose Level 120 mg/dl (70-220) Calcium Level 9.0 mg/dl (8.4-10.2) Phosphorus Level 4.0 mg/dl (2.5-4.9) Magnesium Level 1.9 mg/dl (1.7-2.5) JEWEL DIAS NP Mar 20, 2019 15:53
== END 2019-03-20 16:08 | disposition home or self-care (01) | DRG 343 ==
LOC: FTE 13:52 → PP2 16:40
PROVIDERS: ADMIT Internal Medicine; ATTEND Internal Medicine
PROC: 0DTJ4ZZ Resection of Appendix, Percutaneous Endoscopic Approach (ICD-10-PCS; principal; 2019-03-19 13:00)
DX: K35.890 Other acute appendicitis without perforation or gangrene (principal); K76.0 Fatty (change of) liver, not elsewhere classified; R73.03 Prediabetes
CPT/HCPCS: 36415; 74176; 80048; 80053; 80061; 81003; 83036; 83690; 83735; 84100; 85025; 88304; 96374; 96375; J1100; J1170; J1885; J2250; J2310; J2405; J2543; J2765; J2795; J3010; J3480; J7030